=== PATIENT | female | born 1945 | race Caucasian/White ===

== ENCOUNTER → 2023-05-29 | Day surgery (SDC) | payer MEDICARE, OTHER | LOC: NM 10:50 | PROVIDERS: ATTEND Family Medicine | DX: E21.3 Hyperparathyroidism, unspecified (principal) | CPT/HCPCS: 78072; A9500 ==

== ENCOUNTER 2025-05-16 13:31 | Outpatient (CLI) | payer MEDICARE | END 2025-05-16 13:32 | disposition home or self-care (01) | LOC: SCSRAD 13:31 | PROVIDERS: ATTEND Family Medicine | DX: M25.562 Pain in left knee (principal) ==

== ENCOUNTER 2025-06-26 14:39 | Outpatient (CLI) | payer MEDICARE, OTHER | END 2025-06-26 14:40 | disposition home or self-care (01) | LOC: SCSRAD 14:39 | PROVIDERS: ATTEND Family Medicine | DX: M79.672 Pain in left foot (principal); M25.572 Pain in left ankle and joints of left foot ==